=== PATIENT | female | born 2000 | race Caucasian/White ===

== ENCOUNTER 2022-05-02 05:27 | Emergency (ER) | payer OTHER ==
[~2022-05-02] VITALS: Ht 154.9 cm; Wt 100.9 kg
[2022-05-02 06:02] LABS: BASOPHILS % (AUTO) 0.5 % (0.0-2.0); EOSINOPHILS % (AUTO) 1.8 % (1.0-6.0); HEMATOCRIT 39.8 % (36-46); HEMOGLOBIN 13.4 g/dL (12.0-16.0); LYMPHOCYTES # (AUTO) 3.5 K/uL (1.0-4.8); LYMPHOCYTES % (AUTO) 28.2 % (22.0-44.0); MEAN CORPUSCULAR HGB CONC 33.8 G/dL (31.0-37.0); MEAN CORPUSCULAR VOLUME 86 fL (80-100); MONOCYTES # (AUTO) 0.5 K/uL (0.1-1.0); MONOCYTES % (AUTO) 4.3 % (2.0-9.0); NEUTROPHILS # (AUTO) 8.2 K/uL (1.8-7.7); NEUTROPHILS % (AUTO) 65.2 % (40.0-70.0); PLATELET COUNT (AUTO) 322 K/uL (150-450); RED BLOOD CELL COUNT(AUTO) 4.63 MIL/uL (4.00-5.20); RED CELL DISTRIBUTION WIDTH 13.3 % (11.5-14.5)
[2022-05-02 06:12] LABS: ANION GAP 6 mmol/L (8-16); CARBON DIOXIDE 29 mmol/L (22-29); CHLORIDE 104 mmol/L (98-107); CREATININE 0.81 mg/dL (0.60-1.30); GLOMERULAR FILTR. RATE CALC > 60 mL/min (>60); GLUCOSE,RANDOM 161 mg/dL (70-110); POTASSIUM 3.9 mmol/L (3.5-5.1); SODIUM SERUM 139 mmol/L (136-145); UREA NITROGEN, BLOOD 6 mg/dL (7-18)
[2022-05-02 06:23] LABS: ALANINE AMINOTRANSFERASE 38 U/L (12-78); ALBUMIN 3.9 g/dL (3.4-5.0); ALKALINE PHOSPHATASE 110 U/L (46-116); ASPARTATE AMINOTRANSFERASE 22 U/L (15-37); BILIRUBIN,TOTAL 0.8 mg/dL (0.1-1.0); HCG,QUANTITATIVE < 1 mIU/mL (0-6); LIPASE 103 U/L (73-393); TOTAL PROTEIN, SERUM 8.1 g/dL (6.4-8.2)
[2022-05-02 06:29] LABS: APPEARANCE,URINE CLEAR (CLEAR); BILIRUBIN,URINE NEGATIVE (NEGATIVE); GLUCOSE, URINE (UA) NEGATIVE (NEGATIVE); KETONES,URINE TRACE mg/dL (NEGATIVE); LEUKOCYTE ESTERASE ,URINE NEGATIVE (NEGATIVE); NITRATE,URINE NEGATIVE (NEGATIVE); OCCULT BLOOD,URINE NEGATIVE (NEGATIVE); PH,URINE 5.5 (5.0-8.0); PROTEIN,URINE NEGATIVE (NEGATIVE); UROBILINOGEN,URINE <=1.0 mg/dL (<=1.0)
[2022-05-02 11:01] VITALS: BP 132/74
== END 2022-05-02 11:08 | disposition home or self-care (01) ==
LOC: EMS 05:29
DX: N92.0 Excessive and frequent menstruation with regular cycle (principal); R05.1 Acute cough; F17.210 Nicotine dependence, cigarettes, uncomplicated
CPT/HCPCS: 71045; 80053; 81003; 83690; 84702; 84703; 85025; 99284; 36415-L1; 36415-TC

== ENCOUNTER 2022-07-07 17:54 | Emergency (ER) | payer OTHER ==
[~2022-07-07] VITALS: Ht 152.4 cm; Wt 84.1 kg
[2022-07-07] MEDS ORDERED: PredniSONE 20 MG TABLET PO ONE (19:00)
[2022-07-07] MEDS ORDERED: CLOB15OI17 TP (19:24)
[2022-07-07] MEDS ORDERED: PRED-554 PO (19:24)
[2022-07-07 19:34] VITALS: BP 146/94
== END 2022-07-07 19:37 | disposition home or self-care (01) ==
LOC: EMS 17:56
DX: L30.8 Other specified dermatitis (principal); F17.210 Nicotine dependence, cigarettes, uncomplicated
CPT/HCPCS: 99283; J7512

== ENCOUNTER 2022-09-11 23:11 | Emergency (ER) | payer OTHER ==
[~2022-09-11] VITALS: Ht 154.9 cm; Wt 87.5 kg
[~2022-09-11 23:11] MED LIST: CLOB15OI17 TP; PRED-554 PO
[2022-09-11 23:14] VITALS: TEMP 98.7
[2022-09-12 00:29] LABS: BASOPHILS % (AUTO) 0.3 % (0.0-2.0); EOSINOPHILS % (AUTO) 1.5 % (1.0-6.0); HEMATOCRIT 38.3 % (36-46); HEMOGLOBIN 13.1 g/dL (12.0-16.0); LYMPHOCYTES # (AUTO) 2.6 K/uL (1.0-4.8); LYMPHOCYTES % (AUTO) 24.4 % (22.0-44.0); MEAN CORPUSCULAR HEMOGLOBIN 29.5 pg (26.0-34.0); MEAN CORPUSCULAR HGB CONC 34.1 G/dL (31.0-37.0); MEAN CORPUSCULAR VOLUME 86 fL (80-100); MONOCYTES # (AUTO) 0.5 K/uL (0.1-1.0); MONOCYTES % (AUTO) 4.7 % (2.0-9.0); NEUTROPHILS # (AUTO) 7.5 K/uL (1.8-7.7); NEUTROPHILS % (AUTO) 69.1 % (40.0-70.0); PLATELET COUNT (AUTO) 360 K/uL (150-450); RED BLOOD CELL COUNT(AUTO) 4.43 MIL/uL (4.00-5.20); RED CELL DISTRIBUTION WIDTH 13.2 % (11.5-14.5)
[2022-09-12 00:37] LABS: ANION GAP 7 mmol/L (8-16); CARBON DIOXIDE 29 mmol/L (22-29); CHLORIDE 103 mmol/L (98-107); CREATININE 0.67 mg/dL (0.60-1.30); GLOMERULAR FILTR. RATE CALC > 60 mL/min (>60); GLUCOSE,RANDOM 134 mg/dL (70-110); POTASSIUM 4.2 mmol/L (3.5-5.1); SODIUM SERUM 139 mmol/L (136-145)
[2022-09-12 00:48] LABS: ALANINE AMINOTRANSFERASE 52 U/L (12-78); ALBUMIN 3.7 g/dL (3.4-5.0); ALKALINE PHOSPHATASE 100 U/L (46-116); ASPARTATE AMINOTRANSFERASE 31 U/L (15-37); BILIRUBIN,TOTAL 0.6 mg/dL (0.1-1.0); HCG,QUANTITATIVE < 1 mIU/mL (0-6); TOTAL PROTEIN, SERUM 7.6 g/dL (6.4-8.2)
[2022-09-12 02:12] LABS: APPEARANCE,URINE TURBID (CLEAR); BILIRUBIN,URINE NEGATIVE (NEGATIVE); GLUCOSE, URINE (UA) NEGATIVE (NEGATIVE); KETONES,URINE TRACE mg/dL (NEGATIVE); LEUKOCYTE ESTERASE ,URINE SMALL (NEGATIVE); NITRATE,URINE NEGATIVE (NEGATIVE); OCCULT BLOOD,URINE LARGE (NEGATIVE); PH,URINE 5.5 (5.0-8.0); PROTEIN,URINE 30-70 mg/dL (NEGATIVE); SPECIFIC GRAVITIY, URINE 1.029 (1.003-1.030); UROBILINOGEN,URINE <=1.0 mg/dL (<=1.0)
[2022-09-12 02:26] LABS: BACTERIA,URINE None Seen /HPF (None Seen); RBC,URINE >100 /HPF (0-2); SQUAMOUS EPITHELIAL CELL,UR Few /LPF (None Seen)
[2022-09-12 02:27] VITALS: BP 137/73; PULSE 85; RESP 20
== END 2022-09-12 02:29 | disposition home or self-care (01) ==
LOC: EMS 23:12
DX: N92.0 Excessive and frequent menstruation with regular cycle (principal); L30.9 Dermatitis, unspecified; I10 Essential (primary) hypertension
CPT/HCPCS: 80053; 81001; 84702; 85025; 99283

== ENCOUNTER 2023-08-14 18:00 | Emergency (ER) | payer OTHER ==
[~2023-08-14] VITALS: Ht 157.5 cm; Wt 109.1 kg
[2023-08-14] MEDS ORDERED: TRET20CR5 TP (18:05)
[2023-08-14] MEDS ORDERED: KETO120S13 TP (18:05)
[2023-08-14 18:13] VITALS: TEMP 98.3
[2023-08-14 18:54] LABS: COVID AG,FIA SOURCE NASAL SWAB
[2023-08-14 19:10] LABS: RAPID GROUP A STREP NEGATIVE (NEGATIVE)
[2023-08-14 19:17] LABS: INFLUENZA TYPE A NEGATIVE FOR TYPE A (NEGATIVE); INFLUENZA TYPE B NEGATIVE FOR TYPE B (NEGATIVE)
[2023-08-14 20:09] LABS: SARS-COV2 (COVID) ANTIGEN,FIA Negative (Negative)
[2023-08-14 21:02] VITALS: BP 136/89; PULSE 98; RESP 18
[2023-08-14] MEDS: GuaiFENesin/D-METHORPHAN [SUGAR-FREE] 200-20MG/10 ML SYRUP UDCUP PO ONE (21:24)
[2023-08-14] MEDS: ACETAMINOPHEN 500 MG TABLET PO ONE (21:24)
[2023-08-14] MEDS: IBUPROFEN 200 MG TABLET PO ONE (21:25)
[2023-08-14] MEDS ORDERED: IBUP-1554 PO (21:28)
[2023-08-14] MEDS ORDERED: ACET-66 PO (21:28)
[2023-08-14] MEDS ORDERED: GUAIFDM PO (21:28)
== END 2023-08-14 22:03 | disposition home or self-care (01) ==
LOC: EMS 18:06
DX: J06.9 Acute upper respiratory infection, unspecified (principal); R05.9 Cough, unspecified; R09.89 Other specified symptoms and signs involving the circulatory and respiratory systems; I10 Essential (primary) hypertension; Z20.822 Contact with and (suspected) exposure to COVID-19
CPT/HCPCS: 71045; 87430; 87804; 99284